=== PATIENT | female | born 1995 | race African-American/Black ===

== ENCOUNTER 2021-04-15 16:16 | Emergency (ER) | payer MEDICAID ==
[~2021-04-15] VITALS: Ht 167.6 cm; Wt 93.2 kg
[2021-04-15 16:31] VITALS: BP 118/70
== END 2021-04-15 18:55 | disposition left against medical advice (07) ==
LOC: EMS 16:33
DX: M79.641 Pain in right hand (principal); Z53.21 Procedure and treatment not carried out due to patient leaving prior to being seen by health care provider

== ENCOUNTER 2021-11-13 18:36 | Emergency (ER) | payer BC, MEDICAID ==
[~2021-11-13] VITALS: Ht 167.6 cm; Wt 109.1 kg
[2021-11-13] MEDS ORDERED: AMOX1TAB16 PO (21:50)
[2021-11-13] MEDS ORDERED: IBUP-2070 PO (21:50)
[2021-11-13] MEDS ORDERED: LIDO1ADH83 TP (21:50)
[2021-11-13] MEDS ORDERED: AZIT-84 PO (21:50)
[2021-11-13 21:57] VITALS: BP 115/65
== END 2021-11-13 22:00 | disposition home or self-care (01) ==
LOC: EMS 18:37
DX: J18.9 Pneumonia, unspecified organism (principal); S29.011A Strain of muscle and tendon of front wall of thorax, initial encounter; X50.9XXA Other and unspecified overexertion or strenuous movements or postures, initial encounter; Y93.89 Activity, other specified; Y92.89 Other specified places as the place of occurrence of the external cause; Y99.8 Other external cause status
CPT/HCPCS: 71046; 93005; 99285